=== PATIENT | female | born 1980 | race Caucasian/White ===

== ENCOUNTER 2017-06-07 05:49 | Inpatient (IN) | payer BC ==
[~2017-06-07] VITALS: Ht 167.6 cm; Wt 80.7 kg
[2017-06-07] VITALS (31 sets, daily range): BP systolic 106–136; BP diastolic 55–84
[~2017-06-07 05:49] MED LIST: ENDOCET 5-3251 EACH PO; IBUPROFEN800 MG PO; Motrin PO; PRENATAL TABLE1 EACH PO; Percocet 5/325,Endoc PO; Prefera-OB Plus DHA PO; SYNTHROID50 MCG PO
[2017-06-07] MEDS ORDERED: CEPHALEXIN500 MG PO (06:28)
[2017-06-07 08:41] LABS: EOSINOPHIL (%) 1.1 % (0-5); EOSINOPHIL COUNT 0.1 K/uL (0-0.3); HEMATOCRIT 34.1 % (36.0-46.0); IMMATURE GRANULOCYTE (%) 0.7 % (0.0-0.7); IMMATURE GRANULOCYTE COUNT 0.1 K/uL; INSTRUMENT ABS NEUTROPHIL CT 8.7 K/uL; LYMPHOCYTE COUNT 2.1 K/uL (1.0-2.8); MCH 30.7 PG (29.0-34.0); MCHC 33.4 G/DL (30.0-36.0); MCV 91.9 FL (83-99); MEAN PLAT.VOLUME 11.1 uM^3 (9.5-12.4); MONOCYTE (%) 5.3 % (3-12); MONOCYTE COUNT 0.6 K/uL (0-0.8); NEUTROPHIL (%) 74.9 % (45-76); NEUTROPHIL COUNT 8.7 K/uL (1.8-6.4); PLATELET COUNT 246 K/uL (156-360); RBC DIS.WIDTH-CV 12.1 % (11.8-14.6); RBC DIS.WIDTH-SD 40.3 % (39-53); RED BLOOD COUNT 3.71 M/uL (3.80-5.20); WHITE BLOOD COUNT 11.6 K/uL (4.1-10.2)
[2017-06-08] VITALS (9 sets, daily range): BP systolic 111–134; BP diastolic 55–83
[2017-06-08] MEDS ORDERED: MOTRIN800 MG PO (00:16)
[2017-06-09 07:35] VITALS: BP 129/79
== END 2017-06-09 14:50 | disposition home or self-care (01) | DRG 775 ==
LOC: LDRP-OP 05:49 → 2WEST 05:50 → LDRP-OP 07-01 13:47
PROVIDERS: Obstetrics & Gynecology
PROC: 3E0R3CZ (ICD-10-PCS; principal; 2017-06-07)
PROC: 10E0XZZ Delivery of Products of Conception, External Approach (ICD-10-PCS; principal; 2017-06-07)
PROC: 00HU33Z Insertion of Infusion Device into Spinal Canal, Percutaneous Approach (ICD-10-PCS; principal; 2017-06-07)
DX: O99.284 Endocrine, nutritional and metabolic diseases complicating childbirth (principal); E03.9 Hypothyroidism, unspecified; Z3A.37 37 weeks gestation of pregnancy; Z37.0 Single live birth; J32.9 Chronic sinusitis, unspecified
CPT/HCPCS: 85025; C1755; J3010; J7120